=== PATIENT | male | born 1990 | race Hispanic/Latino ===

== ENCOUNTER 2023-04-21 16:30 | Emergency (ER) | payer BC, SELFPAY ==
--- NOTE | ~2023-04-21 | XR_ITS ---
EXAMINATION: XR knee RT min 4V DATE: 04/21/2023 17:06 INDICATION: Right knee pain. Injury. TECHNIQUE: 4 views of right knee were obtained. COMPARISON: None. FINDINGS: Bone alignment is normal. No fracture. There is mild tricompartmental osteoarthritis. No kn ee joint effusion. IMPRESSION: 1. Mild right knee osteoarthritis. Reviewed, dictated and finalized at location E. ER HAND
[2023-04-21 16:51] VITALS: BP 145/95; PULSE 83; RESP 16; TEMP 37.4; O2SAT 99
--- NOTE | 2023-04-21 17:22 | ED.LOWEXIN ---
HPI - Extremity Injury (Lower) General Chief Complaint: Extremity Injury, Lower Stated Complaint: right knee injury Time Seen by Provider: 04/21/23 16:50 Source: patient and RN notes reviewed Mode of arrival: ambulatory Limitations: no limitations History of Present Illness HPI Narrative: Patient presents today complaining of right knee pain. He was at [facility] 1 week ago, slipped on the ice, and fell onto his knee. He subsequently had a telemedicine visit which told him to elevate, ice, and take wnby-wzt-exkzdfd medication. He sought treatment today because he felt unsteady on his right leg when he got up this morning. He said back down, then states the feeling passed and he was able to go about his day. Denies numbness or tingling in the leg or foot. Currently rates his pain 3/10 and has been taking buvf-oae-ejlzawa medication with some relief. He wears a compression sleeve at night. 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 Related Data Allergies Allergy/AdvReac Type Severity Reaction Status Date / Time No Known Allergies Allergy Verified 04/21/23 17:16 Review of Systems Review of Systems: CONSTITUTIONAL: Denies body aches, fever, chills, or sweats. EYES: Denies visual changes, redness, or discharge. ENT: Denies rhinorrhea, congestion, sore throat, or otalgia. CARDIOVASCULAR: Denies chest pain, palpitations, or edema. RESPIRATORY: Denies cough or dyspnea. GASTROINTESTINAL: Denies abdominal pain, nausea, vomiting, or diarrhea. GENITOURINARY: Denies dysuria or hematuria. SKIN: Denies rash, itching, or wounds. MUSCULOSKELETAL: Denies back pain, or myalgia.+ right knee pain NEUROLOGIC: Denies headache, numbness, tingling, or weakness. PSYCH: Denies depression or anxiety. PMFSH Comments At time of signature, I have reviewed and agree with nursing past medical, surgical, social and family history unless otherwise noted. Please see nursing chart for further information. There is no relevant family history pertinent to the presenting complaint Exam Narrative: GENERAL: Well-appearing, well-nourished, and in no acute distress. HEAD: Normocephalic, atraumatic. EYES: EOMI. No redness or drainage. Conjunctivae normal. ENT: Mucous membranes pink and moist. NECK: Normal AROM. . CHEST: No respiratory distress. EXTREMITIES: Right knee: Mild tenderness to the lateral knee and patellar tendon area. No edema, ecchymosis, or edema. Distal sensation intact. Capillary refill normal. Full AROM of the knee with pain with internal and external rotation. SKIN: Warm, dry, no rash. Capillary refill normal. Normal skin turgor. NEURO: No focal deficits. Alert and oriented x3. Gait steady. PSYCH: Normal affect. No signs of depression or anxiety. Course Course Level of Care: Express Care Visit Vital Signs Vital signs: Vital Signs Temperature 99.4 F 04/21/23 16:51 Pulse Rate 83 04/21/23 16:51 Respiratory Rate 16 04/21/23 16:51 Blood Pressure 145/95 H 04/21/23 16:51 Pulse Oximetry 99 04/21/23 16:51 Oxygen Delivery Room Air 04/21/23 16:51 Temperature 99.4 F 04/21/23 16:51 Pulse Rate 83 04/21/23 16:51 Respiratory Rate 16 04/21/23 16:51 Blood Pressure 145/95 H 04/21/23 16:51 Pulse Oximetry 99 04/21/23 16:51 Oxygen Delivery Room Air 04/21/23 16:51 Reviewed MDM - Extremity Injury (Lower) MDM Narrative Medical decision making narrative: X-rays negative for anything acute. Recommend orthopedic follow-up. Anticipatory guidance given. Differential Diagnosis Differential diagnosis: Likely other (Fracture, meniscus injury, ligamentous injury) Imaging Data Radiologist's impression: ITS Impressions Knee X-Ray 04/21/23 17:08 IMPRESSION: 1. Mild right knee osteoarthritis. Critical Care Time Critical Care Time Critical Care Time: No Discharge Plan Discharge Clinical Impression: Injury of knee, right Qualifiers: Encounter type: initial encounter Qualified
== END 2023-04-21 17:30 | disposition home or self-care (01) ==
PROVIDERS: Emergency Provider Nurse Practitioner; PCP Internal Medicine
DX: S89.91XA Unspecified injury of right lower leg, initial encounter (principal); X58.XXXA Exposure to other specified factors, initial encounter
CPT/HCPCS: 73564; 99203; G0463

== ENCOUNTER 2023-05-19 14:57 | Emergency (ER) | payer BC, SELFPAY ==
[2023-05-19 15:07] VITALS: BP 129/90; PULSE 88; RESP 16; TEMP 37.1; O2SAT 98
--- NOTE | 2023-05-19 15:56 | ED.SKABFB ---
HPI - Skin/Abscess/Foreign Bdy General Chief complaint: Skin/Abscess/Foreign Body Stated complaint: bump on R eyebrow Time Seen by Provider: 05/19/23 15:51 Source: patient and RN notes reviewed Mode of arrival: ambulatory Limitations: no limitations History of Present Illness HPI narrative: Patient presents today with a bump to his right medial eyebrow x1 month reports some pain when he wears glasses, otherwise it does not bother him. No xczr-bab-dshliof treatment prior to arrival. Related Data Home Medications Medication Instructions Recorded Confirmed No Home Medications 05/19/23 05/19/23 Allergies Allergy/AdvReac Type Severity Reaction Status Date / Time No Known Allergies Allergy Verified 05/19/23 15:14 Review of Systems Review of Systems: CONSTITUTIONAL: Denies body aches, fever, chills, or sweats. EYES: Denies visual changes, redness, or discharge. ENT: Denies rhinorrhea, congestion, sore throat, or otalgia. CARDIOVASCULAR: Denies chest pain, palpitations, or edema. RESPIRATORY: Denies cough or dyspnea. GASTROINTESTINAL: Denies abdominal pain, nausea, vomiting, or diarrhea. GENITOURINARY: Denies dysuria or hematuria. SKIN: Denies rash, itching, or wounds.+ bump to right eyebrow MUSCULOSKELETAL: Denies back pain, joint pain, or myalgia. NEUROLOGIC: Denies headache, numbness, tingling, or weakness. PSYCH: Denies depression or anxiety. PMFSH Comments At time of signature, I have reviewed and agree with nursing past medical, surgical, social and family history unless otherwise noted. Please see nursing chart for further information. There is no relevant family history pertinent to the presenting complaint Exam Narrative: GENERAL: Well-appearing, well-nourished, and in no acute distress. HEAD: Normocephalic, atraumatic. EYES: EOMI. No redness or drainage. Conjunctivae normal. ENT: Mucous membranes pink and moist. NECK: Normal AROM. CHEST: No respiratory distress. EXTREMITIES: Normal range of motion. No edema. SKIN: Warm, dry, no rash. Capillary refill normal. Normal skin turgor. 1 cm firm movable nodule to the right medial eyebrow. No erythema, edema, ecchymosis, warmth noted. Nontender to palpation. NEURO: No focal deficits. Alert and oriented x3. Gait steady. PSYCH: Normal affect. No signs of depression or anxiety. Course Course Level of Care: Express Care Visit Vital Signs Vital signs: Vital Signs Temperature 98.8 F 05/19/23 15:07 Pulse Rate 88 05/19/23 15:07 Respiratory Rate 16 05/19/23 15:07 Blood Pressure 129/90 05/19/23 15:07 Pulse Oximetry 98 05/19/23 15:07 Oxygen Delivery Room Air 05/19/23 15:07 Temperature 98.8 F 05/19/23 15:07 Pulse Rate 88 05/19/23 15:07 Respiratory Rate 16 05/19/23 15:07 Blood Pressure 129/90 05/19/23 15:07 Pulse Oximetry 98 05/19/23 15:07 Oxygen Delivery Room Air 05/19/23 15:07 Reviewed MDM - Skin/Abscess/Foreign Bdy MDM Narrative Medical decision making narrative: Etiology of patient's nodule is unclear. Recommend dermatology follow-up. At this time area does not seem infected. Do not recommend lancing at [facility] today. Patient will follow-up with Dermatology and agrees with plan. Anticipatory guidance given. Differential Diagnosis Differential diagnosis: Likely abscess of skin or subcutaneous tissue, cellulitis and other (Cyst) Critical Care Time Critical Care Time Critical Care Time: No Discharge Plan Discharge Clinical Impression: Single skin nodule Patient Disposition: Home, Self-Care Condition: Stable Additional Instructions: The cause of your bump is unclear. Please call and make an appointment with Dermatology for further evaluation and treatment. As discussed, if this area becomes red, painful, please seek treatment sooner. Your blood pressure was elevated above 120/80 today at Urgent Care. This puts you above the threshold for follow up. Please schedule a f
== END 2023-05-19 16:04 | disposition home or self-care (01) ==
PROVIDERS: Emergency Provider Nurse Practitioner; PCP Internal Medicine
DX: R22.0 Localized swelling, mass and lump, head (principal)
CPT/HCPCS: 99211; G0463

== ENCOUNTER 2023-06-30 18:37 | Emergency (ER) | payer BC, SELFPAY ==
[2023-06-30 18:45] VITALS: BP 144/72; PULSE 98; RESP 20; TEMP 38.7; O2SAT 100
--- NOTE | 2023-06-30 19:08 | ED.URI ---
HPI - URI/Sore Throat General Chief Complaint: Upper Respiratory Infection Stated Complaint: hx strep/flu sore throat,MARINELLI Time Seen by Provider: 06/30/23 19:02 Source: patient and RN notes reviewed Mode of arrival: ambulatory Limitations: no limitations History of Present Illness HPI Narrative: Patient presents today complaining of sore throat, headache, body aches, cough. Symptoms began this afternoon. Currently rates his pain 3/10 and has taken a dose of Tylenol, which did provide some relief. States he had influenza and strep 1 month ago and reports that these symptoms are similar. Related Data Home Medications Medication Instructions Recorded Confirmed No Home Medications 05/19/23 05/19/23 Allergies Allergy/AdvReac Type Severity Reaction Status Date / Time No Known Allergies Allergy Verified 05/19/23 15:14 Review of Systems Review of Systems: CONSTITUTIONAL: Denies fever, chills, or sweats.+ body aches EYES: Denies visual changes, redness, or discharge. ENT: Denies rhinorrhea, congestion, or otalgia.+ sore throat CARDIOVASCULAR: Denies chest pain, palpitations, or edema. RESPIRATORY: Denies dyspnea.+ cough GASTROINTESTINAL: Denies abdominal pain, nausea, vomiting, or diarrhea. GENITOURINARY: Denies dysuria or hematuria. SKIN: Denies rash, itching, or wounds. MUSCULOSKELETAL: Denies back pain, joint pain, or myalgia. NEUROLOGIC: Denies numbness, tingling, or weakness.+ headache PSYCH: Denies depression or anxiety. PMFSH Comments At time of signature, I have reviewed and agree with nursing past medical, surgical, social and family history unless otherwise noted. Please see nursing chart for further information. There is no relevant family history pertinent to the presenting complaint Exam Narrative: GENERAL: Mildly ill-appearing, well-nourished, and in no acute distress. HEAD: Normocephalic, atraumatic. EYES: EOMI. No redness or drainage. Conjunctivae normal. ENT: Mucous membranes pink and moist. Nares clear. + rhinorrhea. TMs normal bilaterally. Throat normal. Uvula midline. NECK: Normal AROM. Supple. No lymphadenopathy. CHEST: No respiratory distress. Clear to auscultation. HEART: Regular rate and rhythm. No murmur appreciated. EXTREMITIES: Normal range of motion. No edema. SKIN: Warm, dry, no rash. Capillary refill normal. Normal skin turgor. NEURO: No focal deficits. Alert and oriented x3. Gait steady. PSYCH: Normal affect. No signs of depression or anxiety. Course Course Level of Care: Express Care Visit Vital Signs Vital signs: Vital Signs Temperature 101.6 F H 06/30/23 18:45 Pulse Rate 98 06/30/23 18:45 Respiratory Rate 20 06/30/23 18:45 Blood Pressure 144/72 H 06/30/23 18:45 Pulse Oximetry 100 06/30/23 18:45 Oxygen Delivery Room Air 06/30/23 18:45 Temperature 101.6 F H 06/30/23 18:45 Pulse Rate 98 06/30/23 18:45 Respiratory Rate 20 06/30/23 18:45 Blood Pressure 144/72 H 06/30/23 18:45 Pulse Oximetry 100 06/30/23 18:45 Oxygen Delivery Room Air 06/30/23 18:45 Reviewed MDM - URI/Sore Throat MDM Narrative Medical decision making narrative: Testing negative. Strep culture pending. Symptoms likely viral in etiology. Discussed fkks-kyh-eealubj medication use and duration of illness. No prescription medications indicated at this time. Anticipatory guidance given. Differential Diagnosis Differential diagnosis: Likely upper respiratory infection, viral infection, influenza, pharyngitis and other (Strep throat, COVID) Lab Data Attestation: I reviewed the patient's lab results. Lab results narrative: Rapid strep negative, influenza negative, COVID negative Critical Care Time Critical Care Time Critical Care Time: No Discharge Plan Discharge Clinical Impression: Viral syndrome Patient Disposition: Home, Self-Care Condition: Stable Instructions: Viral Syndrome (ED) Additional Instructions: Your rapid str
== END 2023-06-30 19:26 | disposition home or self-care (01) ==
PROVIDERS: Emergency Provider Nurse Practitioner; PCP Internal Medicine
DX: B34.9 Viral infection, unspecified (principal); Z20.822 Contact with and (suspected) exposure to COVID-19
CPT/HCPCS: 87081; 87426; 87804; 87880; 99213; G0463

== ENCOUNTER 2023-10-10 16:35 | Emergency (ER) | payer BC, SELFPAY ==
--- NOTE | 2023-10-10 16:42 | ED.HA ---
HPI - Headache General Chief Complaint: Shortness of Breath/Dyspnea Stated Complaint: SOB Time Seen by Provider: 10/10/23 16:44 Source: patient, RN notes reviewed and old records reviewed Mode of arrival: ambulatory Limitations: no limitations History of Present Illness HPI Narrative: Patient presents with complaints sudden onset of headache, fatigue, generalized body aches. He reports that he was in his general state of health yesterday, symptoms came on suddenly while he was at work today. He reports he has been sick approximately 3 or 4 hours. He has not taken anything for his symptoms. He is febrile upon arrival Related Data Home Medications Medication Instructions Recorded Confirmed sulfamethoxazole 800 1 tablet PO BID 10/10/23 10/10/23 mg-trimethoprim 160 mg tablet Allergies Allergy/AdvReac Type Severity Reaction Status Date / Time No Known Allergies Allergy Verified 10/10/23 16:37 Review of Systems Review of Systems: All systems reviewed & are unremarkable except as noted in HPI and below Constitutional: Constitutional: Reports no additional constitutional complaints ENT: Reports system reviewed and no additional complaints, except as documented Cardiovascular: Cardiovascular: Reports no additional cardiovascular complaints Respiratory: Respiratory: Reports no additional respiratory complaints Gastrointestinal: Gastrointestinal: Reports no additional gastrointestinal complaints PMFSH Comments At the time of my signature, I reviewed and agree with the nursing past medical, surgical, social, and family history. There is no relevant family history pertinent to the patient complaint. Exam Const: General: cooperative, no acute distress, alert and awake Orientation/consciousness: oriented to person, oriented to place and oriented to time HENMT: Head: normal to inspection Ears: TM's normal bilaterally Mouth: Yes moist mucous membranes Throat: posterior oropharynx normal Neck: Lymphatic: no lymphadenopathy noted Resp: Effort & Inspection: normal respiratory effort and able to speak in complete sentences Auscultation: clear to auscultation bilaterally, no crackles, no rales, no rhonchi and no wheezes Cardio: Palpation: normal PMI Rate: regular rate Rhythm: regular rhythm Heart sounds: S1 normal heart sound present and S2 normal heart sound present Neuro: General: oriented to person, oriented to place and oriented to time Cranial nerves: Yes CN's II-XII intact bilaterally Psych: Appearance: grossly normal Thought process: Normal thought process present Insight: Good insight present (Psych) Judgement: Good judgement present (Psych) Course Course Level of Care: Express Care Visit Vital Signs Vital signs: Reviewed MDM - Headache MDM Narrative Medical decision making narrative: Patient with fever and flu like symptoms. Negative for flu and COVID, but has only had symptoms for few hours. Very likely patient has not been ill long enough for test to turn positive. Discussed elevated blood pressure, need for primary care provider follow-up. Supportive care measures. Work note for 3 days. Some parts of this dictation were generated by voice recognition software and may contain typographical and/or grammatical inaccuracies. Discharge instructions reviewed with patient, as well as provided in writing per nursing staff. The instructions also include specific and strict return/GO TO THE ER as well as f/u information. All questions have been answered, and the patient deny any further questions with discharge and discharge plan. Differential Diagnosis Differential diagnosis: Likely other (Differential diagnoses include influenza, COVID, URI, viral syndrome) Medical Records Attestation: I reviewed the patient's medical records. Lab Data Attestation: I reviewed the patient's lab results. Lab results narrative: Negative COVID, negative flu Discharge Plan Discharge Clinical Impression: V
[2023-10-10 16:46] VITALS: BP 156/87; PULSE 105; RESP 16; TEMP 38.7; O2SAT 100
[2023-10-10 16:56] LABS: EDINFLUASCREEN Negative; EDINFLUBSCREEN Negative
[2023-10-10 17:05] VITALS: TEMP 38.7
[2023-10-10] MEDS: IBUPROFEN 400 MG TABLET PO (17:05)
[2023-10-10 17:20] VITALS: PULSE 98; RESP 16; TEMP 37.3; O2SAT 100
== END 2023-10-10 17:20 | disposition home or self-care (01) ==
PROVIDERS: Emergency Provider Nurse Practitioner Family; PCP Internal Medicine
DX: B34.9 Viral infection, unspecified (principal); Z20.822 Contact with and (suspected) exposure to COVID-19
CPT/HCPCS: 87426; 87804; 99213; A9270; G0463

== ENCOUNTER 2023-10-12 11:15 | Emergency (ER) | payer BC, SELFPAY ==
[2023-10-12 11:22] VITALS: BP 164/85; PULSE 97; RESP 16; TEMP 37.2; O2SAT 99
--- NOTE | 2023-10-12 11:25 | ED.GENADULT ---
HPI - General Adult General Chief complaint: Allergic Reaction Stated complaint: Allergic Reaction Source: patient Mode of arrival: ambulatory Limitations: no limitations History of Present Illness HPI narrative: 33-year-old male presented for complaint of a rash to entire body, onset this morning. Rash is described as red and itchy. Denies rash to the face. Pt started Bactrim 6 days ago for cyst over eye; pt had not taken the doses when he was seen 2 days ago in the clinic for viral symptoms. He resumed the medication yesterday. Pt is scheduled with dermatology in 2 weeks. Denies lip, tongue, or throat swelling, shortness of breath or wheezing. Denies changes to soap, detergent, lotion, or any other exposures. No one else in the house or any contacts with similar symptoms. Patient took Benadryl, last dose 1030. Related Data Home Medications Medication Instructions Recorded Confirmed sulfamethoxazole 800 1 tablet PO BID 10/10/23 10/12/23 mg-trimethoprim 160 mg tablet Allergies Allergy/AdvReac Type Severity Reaction Status Date / Time Penicillins Allergy Intermediate Unknown Verified 10/12/23 11:30 Review of Systems Review of Systems: CONSTITUTIONAL: Denies body aches, fever, chills, or sweats. EYES: Denies visual changes, redness, or discharge. ENT: Denies rhinorrhea, congestion CARDIOVASCULAR: Denies chest pain, palpitations, or edema. RESPIRATORY: Denies cough or dyspnea. GASTROINTESTINAL: Denies abdominal pain, nausea, vomiting, or diarrhea. SKIN: reports rash MUSCULOSKELETAL: Denies back pain, joint pain, or myalgia. NEUROLOGIC: Denies headache, numbness, tingling, or weakness. PMFSH Comments At time of signature, I have reviewed and agree with nursing past medical, surgical, social and family history unless otherwise noted. Please see nursing chart for further information. There is no relevant family history pertinent to the presenting complaint Exam Narrative: GENERAL: Well-appearing HEAD: Normocephalic, atraumatic. EYES: conjunctivae clear, and EOMI. ENT: Mucous membranes moist. Oropharynx without edema, erythema or lesions. No soft palate or uvula edema, no tongue, lip edema or other mucosal involvement, NECK: Supple. No lymphadenopathy CHEST: Clear to auscultation. HEART: Regular rate and rhythm. SKIN: Warm, dry. erythematous maculopapular rash noted to trunk, bilateral arms and legs. Rash spares the face. NEURO: Alert and oriented x3. Course Course Emergency Course: Patient is aware of diagnosis, understands and agrees to treatment plan. Anticipatory guidance given. Patient agrees to follow-up as directed and is aware of reasons to seek care at the emergency department. Portions of this record may have been created with voice recognition software Level of Care: Express Care Visit Vital Signs Vital signs: Vital Signs Temperature 99.0 F 10/12/23 11:22 Pulse Rate 97 10/12/23 11:22 Respiratory Rate 16 10/12/23 11:22 Blood Pressure 164/85 H 10/12/23 11:22 Pulse Oximetry 99 10/12/23 11:22 Oxygen Delivery Room Air 10/12/23 11:22 Temperature 99.0 F 10/12/23 11:22 Pulse Rate 97 10/12/23 11:22 Respiratory Rate 16 10/12/23 11:22 Blood Pressure 164/85 H 10/12/23 11:22 Pulse Oximetry 99 10/12/23 11:22 Oxygen Delivery Room Air 10/12/23 11:22 Reviewed Medical Decision Making MDM Narrative Medical decision making narrative: patient is advised to stop Bactrim. IM Solu-Medrol given. Does not appear at this time to be erythema multiforme, bullous, SJS, TEN; patient looks well, nontoxic and is tolerating oral intake; no neurologic signs or symptoms; appropriate for initial outpatient treatment; discussed the importance of follow-up, patient agrees Discussed physical exam findings and Reviewed signs/symptoms go to the ER. Instructed patient to go to nearest ER immediately for any worsening symptoms including but not limited to: fev
[2023-10-12] MEDS: methylPREDNISolone SOD SUCC 125 MG VIAL IM (11:48)
== END 2023-10-12 12:02 | disposition home or self-care (01) ==
PROVIDERS: Emergency Provider Nurse Practitioner Family; PCP Internal Medicine
DX: T78.40XA Allergy, unspecified, initial encounter (principal)
CPT/HCPCS: 96372; 99213; G0463; J2919

== ENCOUNTER 2023-11-12 11:28 | Emergency (ER) | payer BC, SELFPAY ==
--- NOTE | ~2023-11-12 | XR_ITS ---
EXAMINATION: XR chest 2V DATE: 11/12/2023 12:37 INDICATION: Abnormal lung sounds in the right upper lung TECHNIQUE: PA and lateral views of the chest were obtained. COMPARISON: None FINDINGS: The lungs are clear with no focal airspace opacities, pulmonary edema, pleural effusion or pneumothor ax. The cardiomediastinal silhouette is normal. Visualized bones and soft tissues are unremarkable. IMPRESSION: 1. No acute cardiopulmonary disease. Reviewed, dictated and finalized at location A.
[2023-11-12 11:40] VITALS: BP 153/102; PULSE 103; RESP 20; TEMP 37.3; O2SAT 100
[2023-11-12 11:44] LABS: EDCOVIDSCREEN Positive (Negative)
[2023-11-12 11:56] LABS: EDINFLUASCREEN Negative (Negative); EDINFLUBSCREEN Negative (Negative)
--- NOTE | 2023-11-12 12:25 | ED.URI ---
HPI - URI/Sore Throat General Chief Complaint: Upper Respiratory Infection Stated Complaint: Sinus Time Seen by Provider: 11/12/23 12:25 Source: patient, RN notes reviewed and old records reviewed Mode of arrival: ambulatory Limitations: no limitations History of Present Illness HPI Narrative: Patient presents with complaints of COVID symptoms for 2 days. He reports that he has had multiple sick contacts. He does report cough, fever, body aches, has been taking cezy-eyp-kwhujnz medications with decent results. He is not in any distress. Reports he has had COVID multiple times, states this feels the same Related Data Home Medications Medication Instructions Recorded Confirmed sulfamethoxazole 800 1 tablet PO BID 10/10/23 10/12/23 mg-trimethoprim 160 mg tablet Allergies Allergy/AdvReac Type Severity Reaction Status Date / Time Penicillins Allergy Intermediate Unknown Verified 10/12/23 11:30 Review of Systems Review of Systems: All systems reviewed & are unremarkable except as noted in HPI and below Constitutional: Constitutional: Reports as per HPI, Reports no additional constitutional complaints and Reports fever(s) ENT: Reports system reviewed and no additional complaints, except as documented, Reports as per HPI, Reports nasal discharge and Reports sore throat Cardiovascular: Cardiovascular: Reports as per HPI and Reports no additional cardiovascular complaints Respiratory: Respiratory: Reports as per HPI, Reports no additional respiratory complaints and Reports cough Gastrointestinal: Gastrointestinal: Reports no additional gastrointestinal complaints Musculoskeletal: Musculoskeletal: Reports myalgias Exam Const: General: cooperative, no acute distress, alert and awake Orientation/consciousness: oriented to person, oriented to place and oriented to time HENMT: Head: normal to inspection Ears: TM's normal bilaterally Mouth: Yes oropharynx normal and Yes moist mucous membranes Throat: posterior oropharynx normal Resp: Effort & Inspection: normal respiratory effort and able to speak in complete sentences Auscultation: clear to auscultation bilaterally, no crackles, no rales, rhonchi right upper and no wheezes Cardio: Palpation: normal PMI Rate: regular rate Rhythm: regular rhythm Heart sounds: S1 normal heart sound present and S2 normal heart sound present Neuro: General: oriented to person, oriented to place and oriented to time Cranial nerves: Yes CN's II-XII intact bilaterally Psych: Appearance: grossly normal Thought process: Normal thought process present Insight: Good insight present (Psych) Judgement: Good judgement present (Psych) Course Course Level of Care: Express Care Visit Vital Signs Vital signs: Vital Signs Temperature 99.2 F 11/12/23 11:40 Pulse Rate 103 H 11/12/23 11:40 Respiratory Rate 20 11/12/23 11:40 Blood Pressure 153/102 H 11/12/23 11:40 Pulse Oximetry 100 11/12/23 11:40 Oxygen Delivery Room Air 11/12/23 11:40 Temperature 99.2 F 11/12/23 11:40 Pulse Rate 103 H 11/12/23 11:40 Respiratory Rate 20 11/12/23 11:40 Blood Pressure 153/102 H 11/12/23 11:40 Pulse Oximetry 100 11/12/23 11:40 Oxygen Delivery Room Air 11/12/23 11:40 MDM - URI/Sore Throat MDM Narrative Medical decision making narrative: Positive COVID, negative flu. Chest x-ray without acute findings. Symptomatic care. Follow with primary care provider. Discharge instructions reviewed with patient, as well as provided in writing per nursing staff. The instructions also include specific and strict return/GO TO THE ER as well as f/u information. All questions have been answered, and the patient deny any further questions with discharge and discharge plan. Some parts of this dictation were generated by voice recognition software and may contain typographical and/or grammatical inaccuracies. Differential Diagnosis Differential diagnosis: Likely upper respiratory
== END 2023-11-12 13:06 | disposition home or self-care (01) ==
PROVIDERS: Emergency Provider Nurse Practitioner Family; PCP Internal Medicine
DX: U07.1 COVID-19 (principal)
CPT/HCPCS: 71046; 87635; 87804; 99213; G0463